=== PATIENT | male | born 1960 | race Caucasian/White ===

== ENCOUNTER 2018-03-18 11:56 | Day surgery (SDC) | payer BC ==
[~2018-03-18 11:56] MED LIST: ACETAMINOPHEN 1,000 MG/100 ML BTL IV ONE; CEFAZOLIN 2 Gram 2 GM/50 ML BAG IVPB ONE; FAMOTIDINE 20MG TABLET PO ONE; MECLIZINE 25 MG TABLET PO ONE; METOCLOPRAMIDE 10 MG TABLET PO ONE
[2018-03-18] MEDS ORDERED: PROPOFOL 10 MG/ML VIAL IV ONE (11:57)
[2018-03-18] MEDS ORDERED: *PACU ONLY* KETAMINE HCL 10 MG/ML (20ML) VIAL IV ONE (11:57)
[2018-03-18] MEDS ORDERED: BUPIVACAINE 0.5% W/EPI MPF 30 ML VIAL IVP ONE (11:57)
[2018-03-18] MEDS ORDERED: KETOROLAC 30 MG/ML VIAL IVP ONE (11:57)
[2018-03-18] MEDS ORDERED: SEVOFLURANE 250 ML INH ONE (11:57)
[2018-03-18] MEDS ORDERED: MIDAZOLAM HCL 2MG/2ML VIAL IV ONE (11:57)
[2018-03-18] MEDS ORDERED: HYDROMORPHONE HCL 2 MG/ML VIAL IV ONE (11:57)
--- NOTE | 2018-03-20 06:46 | Operative Note ---
DATE: 03/18/2018. PREOPERATIVE DIAGNOSIS: RUPTURED LEFT DISTAL BICEPS. POSTOPERATIVE DIAGNOSES: RUPTURED LEFT DISTAL BICEPS. PROCEDURE: LEFT DISTAL BICEPS TENDON REATTACHMENT WITH ARTHREX BICEPS BUTTON. STAFF SURGEON: Manuel Ramirez M.D. ANESTHESIA: General. PREPARATION: ChloraPrep. INDIVIDUAL CONSIDERATIONS: None. DESCRIPTION OF PROCEDURE: The patient was taken to the operating room and placed supine on the operating table. He had the successful induction of a general anesthetic. His left upper extremity was prepped and draped in the usual fashion. The patient had about a 4.0 to 5.0 cm incision about 3.0 cm distal to the flexion crease of the elbow volarly directly over the radial tuberosity. The skin was infiltrated with 0.5% Marcaine with epinephrine prior. Sharp dissection was carried down just through the skin. Finger dissection was carried through to the subcutaneous tissue and into the antebrachial area. Care was taken to avoid the antebrachial cutaneous nerve. I went ahead and, using finger dissection up into the arm, followed the hematoma and seroma and found the end of the tendon about 7.0 cm folded up in the arm. I brought that out through the wound. This was then trimmed and fashioned at the end which was globular. I then placed the whip stitch through the biceps button set and placed it through the tendon about 2.5 cm. I then placed it and weaved it through the biceps button. I then put this off to the side. After fully supinating the arm, using finger dissection I found the biceps tuberosity of the proximal radius. Using blunt retraction I was able to free up soft tissue. I then placed the guidepin through the tuberosity from anterior to posterior. I verified the position with fluoroscopy. I then used the 8.0 mm reamer to ream the socket. I had previously sized the end of the tendon through the 7.0 mm sleeve. After thoroughly irrigating out all of the debris, I passed the button through the socket and then through the hole on the other side. I then pulled on the sutures to seat it in the socket. I had previously passed a fiber loop through the end of the tendon. I passed a limb of the sutures through the fiber loop and then tied this down. I then attached the peak screw to the other limb of the stitch and then brought it through and then fit it into the socket against the tendon slightly on the ulnar side. I then checked it and found it to be completely seated and well affixed. Fluoroscopy verified the position of the biceps button. After irrigation, the subcutaneous tissue was closed with #2-0+ Vicryl. The skin was closed with minh. A sterile Bulkee, mildly compressive dressing was applied along with a sling. He was taken back to Recovery in good condition. There were no complications. JOB NUMBER: [id number] MTDD
== END 2018-03-18 18:22 | disposition home or self-care (01) ==
LOC: SUR 11:56
PROVIDERS: ATTEND Orthopaedic Surgery
DX: S46.211A Strain of muscle, fascia and tendon of other parts of biceps, right arm, initial encounter (principal); I10 Essential (primary) hypertension; E78.00 Pure hypercholesterolemia, unspecified; K21.9 Gastro-esophageal reflux disease without esophagitis
CPT/HCPCS: 76000; C1713; J1885